=== PATIENT | male | born 1950 | race Caucasian/White ===

== ENCOUNTER 2017-11-19 16:18 | Inpatient (IN) | payer MEDICARE, MEDICAID ==
[~2017-11-19] VITALS: Ht 162.6 cm; Wt 65.8 kg
[2017-11-19 19:10] LABS: EOSINOPHILS % (AUTO) 0.9 % (1.0-6.0); HEMATOCRIT 45.2 % (41-53); HEMOGLOBIN 14.8 g/dL (13.5-17.5); LYMPHOCYTES # (AUTO) 1.6 K/uL (1.0-4.8); LYMPHOCYTES % (AUTO) 24.4 % (22.0-44.0); MEAN CORPUSCULAR HEMOGLOBIN 28.2 pg (26.0-34.0); MEAN CORPUSCULAR HGB CONC 32.7 G/dL (31.0-37.0); MEAN CORPUSCULAR VOLUME 86 fL (80-100); MONOCYTES # (AUTO) 0.5 K/uL (0.1-1.0); MONOCYTES % (AUTO) 7.9 % (2.0-9.0); NEUTROPHILS # (AUTO) 4.3 K/uL (1.8-7.7); NEUTROPHILS % (AUTO) 65.8 % (40.0-70.0); PLATELET COUNT (AUTO) 373 K/uL (150-450); RED BLOOD CELL COUNT(AUTO) 5.23 MIL/uL (4.50-5.90); RED CELL DISTRIBUTION WIDTH 14.6 % (11.5-14.5)
[2017-11-19 19:21] LABS: AMPHET/METH SCREEN,URINE NEGATIVE (NEGATIVE); BARBITURATE SCREEN, URINE NEGATIVE (NEGATIVE); BENZODIAZEPINES SCREEN,URINE NEGATIVE (NEGATIVE); CANNABINOID SCREEN,URINE NEGATIVE (NEGATIVE); COCAINE SCREEN,URINE NEGATIVE (NEGATIVE); METHADONE SCREEN, URINE NEGATIVE (NEGATIVE); OPIATE SCREEN,URINE NEGATIVE (NEGATIVE); PHENCYCLIDINE SCREEN,URINE NEGATIVE (NEGATIVE)
[2017-11-19 19:25] LABS: ANION GAP 9 mmol/L (8-16); CALCIUM, TOTAL 8.5 mg/dL (8.8-10.5); CARBON DIOXIDE 30 mmol/L (22-29); CHLORIDE 101 mmol/L (98-107); GLOMERULAR FILTR. RATE CALC > 60 mL/min (>60); GLUCOSE,RANDOM 94 mg/dL (70-110); POTASSIUM 4.9 mmol/L (3.5-5.1); SODIUM SERUM 140 mmol/L (136-145); UREA NITROGEN, BLOOD 18 mg/dL (7-18)
[2017-11-19 19:39] LABS: ALANINE AMINOTRANSFERASE 47 U/L (12-78); ALBUMIN 3.6 g/dL (3.4-5.0); ALKALINE PHOSPHATASE 93 U/L (46-116); ASPARTATE AMINOTRANSFERASE 37 U/L (15-37); BILIRUBIN,TOTAL 0.3 mg/dL (0.1-1.0); TOTAL PROTEIN, SERUM 8.2 g/dL (6.4-8.2)
[2017-11-19] MEDS ORDERED: LORazepam 2 MG TABLET PO PRN (21:15)
[2017-11-19] MEDS ORDERED: HALOPERIDOL 5 MG TABLET PO PRN (21:15)
[2017-11-20 02:12] VITALS: BP 122/64
[2017-11-20] MEDS ORDERED: PNEUMOCOCCAL VACCINE POLYVALENT 0.5 ML VIAL [PPSV23] IM ONE (02:30)
[2017-11-20 05:48] LABS: CHOL/HDL RATIO 3.1 (4.2-7.3); CHOLESTEROL 222 mg/dL (131-200); HDL CHOLESTEROL 71 mg/dL (40-60); LDL CHOL (CALC.) 136 mg/dL (0-130); TRIGLYCERIDES 73 mg/dL (15-150)
[2017-11-20] MEDS ORDERED: ACETAMINOPHEN 325 MG TABLET PO PRN (06:15)
[2017-11-20] MEDS: IBUPROFEN 600 MG TABLET PO PRN (06:31)
[2017-11-20 08:44] VITALS: BP 124/84
[2017-11-20] MEDS ORDERED: MAG HYDROX/AL HYDROX/SIMETH ES 30 ML SUSPENSION UDCUP PO PRN (09:45)
[2017-11-20] MEDS ORDERED: CloNIDine HCL 0.1 MG TABLET PO PRN (09:45)
[2017-11-20] MEDS ORDERED: PETROLATUM,WHITE 71 GM JELLY TP PRN (09:45)
[2017-11-20] MEDS ORDERED: BACITRACIN 28.4 GM OINTMENT TP PRN (09:45)
[2017-11-20] MEDS ORDERED: LOPERAMIDE HCL 2 MG CAPSULE PO PRN (09:45)
[2017-11-20] MEDS ORDERED: ALBUTEROL SULFATE HFA 90 MCG/PUFF 8 GM INHALER IH PRN (09:45)
[2017-11-20] MEDS ORDERED: MAGNESIUM HYDROXIDE SUSPENSION 30 ML UDCUP PO PRN (09:45)
[2017-11-20] MEDS ORDERED: ONDANSETRON HCL 4 MG TABLET PO PRN (09:45)
[2017-11-20] MEDS ORDERED: DICLOFENAC SODIUM 1% 100 GM GEL [2GM] TP PRN (09:45)
[2017-11-20] MEDS ORDERED: BENZOCAINE/MENTHOL LOZENGE MM PRN (09:45)
[2017-11-20 12:45] VITALS: BP 120/78
[2017-11-20] MEDS: TraMADol HCL 50 MG TABLET PO PRN (12:58)
[2017-11-20 14:00] VITALS: BP 128/68
[2017-11-20] MEDS: ESCITALOPRAM OXALATE 10 MG TABLET PO SCH (14:00)
[2017-11-20 16:58] VITALS: BP 105/68
[2017-11-21] MEDS: IBUPROFEN 600 MG TABLET PO PRN (03:56)
[2017-11-21 04:50] VITALS: BP 137/90
[2017-11-21] MEDS: ESCITALOPRAM OXALATE 10 MG TABLET PO SCH (08:14)
[2017-11-21 08:22] VITALS: BP 128/69
[2017-11-21] MEDS: TraMADol HCL 50 MG TABLET PO PRN (08:22)
[2017-11-21] MEDS ORDERED: ESCITALOPRAM OXALATE 10 MG TABLET PO SCH (09:00)
[2017-11-21 09:22] VITALS: BP 122/68
[2017-11-21 21:05] VITALS: BP 109/62
[2017-11-22] VITALS (7 sets, daily range): BP systolic 123–133; BP diastolic 71–93
[2017-11-22 06:29] LABS: GLUCOMETER DEV NAME(LOC) 3EI B; GLUCOSE,POINT OF CARE 88 MG/DL (70-110)
[2017-11-22] MEDS: ESCITALOPRAM OXALATE 10 MG TABLET PO SCH (08:34)
[2017-11-22] MEDS: TraMADol HCL 50 MG TABLET PO PRN ×2 (12:26→20:35)
[2017-11-22] MEDS: SIMVASTATIN 10 MG TABLET PO SCH (20:23)
[2017-11-22] MEDS: ZOLPIDEM TARTRATE 10 MG TABLET PO PRN (20:36)
[2017-11-23 03:21] VITALS: BP 124/76
[2017-11-23 09:18] LABS: BASOPHILS % (AUTO) 1.3 % (0.0-2.0); EOSINOPHILS % (AUTO) 2.2 % (1.0-6.0); HEMATOCRIT 42.5 % (41-53); HEMOGLOBIN 14.1 g/dL (13.5-17.5); LYMPHOCYTES # (AUTO) 1.5 K/uL (1.0-4.8); LYMPHOCYTES % (AUTO) 27.6 % (22.0-44.0); MEAN CORPUSCULAR HEMOGLOBIN 28.4 pg (26.0-34.0); MEAN CORPUSCULAR HGB CONC 33.1 G/dL (31.0-37.0); MEAN CORPUSCULAR VOLUME 86 fL (80-100); MONOCYTES # (AUTO) 0.6 K/uL (0.1-1.0); MONOCYTES % (AUTO) 10.8 % (2.0-9.0); NEUTROPHILS # (AUTO) 3.1 K/uL (1.8-7.7); NEUTROPHILS % (AUTO) 58.1 % (40.0-70.0); PLATELET COUNT (AUTO) 346 K/uL (150-450); RED BLOOD CELL COUNT(AUTO) 4.97 MIL/uL (4.50-5.90); RED CELL DISTRIBUTION WIDTH 14.8 % (11.5-14.5)
[2017-11-23] MEDS: CHOLECALCIFEROL (VIT D3) 1,000 UNITS TABLET PO SCH (10:06)
[2017-11-23] MEDS: ESCITALOPRAM OXALATE 10 MG TABLET PO SCH (10:06)
[2017-11-23 10:43] VITALS: BP 148/83
[2017-11-23 20:10] VITALS: BP 136/68
[2017-11-23] MEDS: SIMVASTATIN 10 MG TABLET PO SCH (20:33)
[2017-11-23] MEDS: ZOLPIDEM TARTRATE 10 MG TABLET PO PRN (20:33)
[2017-11-23 21:59] VITALS: BP 137/81
[2017-11-23] MEDS: TraMADol HCL 50 MG TABLET PO PRN (22:01)
[2017-11-24 06:38] VITALS: BP 141/86
[2017-11-24] MEDS: CHOLECALCIFEROL (VIT D3) 1,000 UNITS TABLET PO SCH (08:36)
[2017-11-24] MEDS: ESCITALOPRAM OXALATE 10 MG TABLET PO SCH (08:36)
[2017-11-24 10:14] VITALS: BP 120/75
[2017-11-24] MEDS ORDERED: ESCI10TA PO (10:34)
[2017-11-24] MEDS ORDERED: SIMV-259 PO (10:35)
[2017-11-24] MEDS ORDERED: VITAD1000 PO (10:35)
[2017-11-24 10:49] VITALS: BP 124/68
[2017-11-24] MEDS: TraMADol HCL 50 MG TABLET PO PRN (10:49)
[2017-11-24 17:00] VITALS: BP 160/98
[2017-11-24] MEDS: SIMVASTATIN 10 MG TABLET PO SCH (21:02)
[2017-11-25 00:10] VITALS: BP 142/101
[2017-11-25] MEDS: TraMADol HCL 50 MG TABLET PO PRN (00:13)
[2017-11-25] MEDS: ESCITALOPRAM OXALATE 10 MG TABLET PO SCH (08:51)
[2017-11-25] MEDS: CHOLECALCIFEROL (VIT D3) 1,000 UNITS TABLET PO SCH (08:51)
[2017-11-25 09:24] VITALS: BP 126/80
[2017-11-25 18:09] VITALS: BP 140/95
[2017-11-25] MEDS: SIMVASTATIN 10 MG TABLET PO SCH (20:10)
[2017-11-26] MEDS: ESCITALOPRAM OXALATE 10 MG TABLET PO SCH (09:00)
[2017-11-26] MEDS: CHOLECALCIFEROL (VIT D3) 1,000 UNITS TABLET PO SCH (09:00)
[2017-11-26] MEDS ORDERED: SULFAMETHOX/TRIMETH DS 800-160 MG/TABLET PO SCH (09:00)
== END 2017-11-26 09:15 | disposition home or self-care (01) | DRG 885 ==
LOC: EMS 16:21 → B2X 22:00 → 3EX 11-20 10:17
PROC: 3E0234Z Introduction of Serum, Toxoid and Vaccine into Muscle, Percutaneous Approach (ICD-10-PCS; principal; 2017-11-20)
DX: F33.2 Major depressive disorder, recurrent severe without psychotic features (principal); J44.9 Chronic obstructive pulmonary disease, unspecified; R45.851 Suicidal ideations; L97.919 Non-pressure chronic ulcer of unspecified part of right lower leg with unspecified severity; L97.929 Non-pressure chronic ulcer of unspecified part of left lower leg with unspecified severity; M48.56XA Collapsed vertebra, not elsewhere classified, lumbar region, initial encounter for fracture; B18.2 Chronic viral hepatitis C; F41.9 Anxiety disorder, unspecified; G47.00 Insomnia, unspecified; G89.29 Other chronic pain; M19.90 Unspecified osteoarthritis, unspecified site; M43.17 Spondylolisthesis, lumbosacral region; M85.80 Other specified disorders of bone density and structure, unspecified site; M54.9 Dorsalgia, unspecified; M25.569 Pain in unspecified knee; Z23 Encounter for immunization; Z79.899 Other long term (current) drug therapy; Z59.0 Homelessness
CPT/HCPCS: 72100; 82306; 82962; 84443; 87070; 87147; 87205; 90471; 93925; 93970; 99285; G0480

== ENCOUNTER 2018-07-11 11:22 | Inpatient (IN) | payer MEDICARE, MEDICAID ==
[~2018-07-11] VITALS: Ht 170.2 cm; Wt 68.2 kg
[~2018-07-11 11:22] MED LIST: ESCI10TA PO; SIMV-259 PO; VITAD1000 PO
[2018-07-11 12:05] LABS: BASOPHILS % (AUTO) 0.8 % (0.0-2.0); EOSINOPHILS % (AUTO) 1.1 % (1.0-6.0); HEMATOCRIT 45.8 % (41-53); HEMOGLOBIN 15.1 g/dL (13.5-17.5); LYMPHOCYTES # (AUTO) 1.1 K/uL (1.0-4.8); LYMPHOCYTES % (AUTO) 22.2 % (22.0-44.0); MEAN CORPUSCULAR HEMOGLOBIN 28.4 pg (26.0-34.0); MEAN CORPUSCULAR VOLUME 86 fL (80-100); MONOCYTES # (AUTO) 0.4 K/uL (0.1-1.0); MONOCYTES % (AUTO) 8.5 % (2.0-9.0); NEUTROPHILS # (AUTO) 3.5 K/uL (1.8-7.7); NEUTROPHILS % (AUTO) 67.4 % (40.0-70.0); PLATELET COUNT (AUTO) 403 K/uL (150-450); RED BLOOD CELL COUNT(AUTO) 5.32 MIL/uL (4.50-5.90); RED CELL DISTRIBUTION WIDTH 15.9 % (11.5-14.5)
[2018-07-11 12:13] LABS: ANION GAP 8 mmol/L (8-16); CALCIUM, TOTAL 9.5 mg/dL (8.8-10.5); CARBON DIOXIDE 28 mmol/L (22-29); CHLORIDE 104 mmol/L (98-107); CREATININE 0.78 mg/dL (0.60-1.30); GLOMERULAR FILTR. RATE CALC > 60 mL/min (>60); GLUCOSE,RANDOM 100 mg/dL (70-110); POTASSIUM 4.4 mmol/L (3.5-5.1); SODIUM SERUM 140 mmol/L (136-145); UREA NITROGEN, BLOOD 14 mg/dL (7-18)
[2018-07-11 12:28] LABS: ALANINE AMINOTRANSFERASE 53 U/L (12-78); ALBUMIN 3.7 g/dL (3.4-5.0); ALKALINE PHOSPHATASE 97 U/L (46-116); ASPARTATE AMINOTRANSFERASE 46 U/L (15-37); BILIRUBIN,TOTAL 0.4 mg/dL (0.1-1.0); TOTAL PROTEIN, SERUM 8.4 g/dL (6.4-8.2)
[2018-07-11] MEDS ORDERED: LOPERAMIDE HCL 2 MG CAPSULE PO PRN (13:15)
[2018-07-11] MEDS ORDERED: QUEtiapine FUMARATE 100 MG TABLET PO PRN (13:15)
[2018-07-11] MEDS ORDERED: TUBERCULIN, PURIFIED PROTEIN DERIVATIVE 5 TU/0.1 ML SYG ID ONE (13:15)
[2018-07-11] MEDS ORDERED: PROMETHAZINE HCL 25 MG TABLET PO PRN (13:15)
[2018-07-11] MEDS ORDERED: LORazepam 2 MG TABLET PO PRN (13:15)
[2018-07-11] MEDS ORDERED: MAG HYDROX/AL HYDROX/SIMETH ES 30 ML SUSPENSION UDCUP PO PRN (13:15)
[2018-07-11] MEDS ORDERED: ACETAMINOPHEN 325 MG TABLET PO PRN (13:15)
[2018-07-11] MEDS ORDERED: HydrOXYzine PAMOATE 50 MG CAPSULE PO PRN (13:15)
[2018-07-11] MEDS ORDERED: GuaiFENesin/D-METHORPHAN [SUGAR-FREE] 200-20MG/10 ML SYRUP UDCUP PO PRN (13:15)
[2018-07-11 18:17] LABS: AMPHET/METH SCREEN,URINE POSITIVE (NEGATIVE); BARBITURATE SCREEN, URINE NEGATIVE (NEGATIVE); BENZODIAZEPINES SCREEN,URINE NEGATIVE (NEGATIVE); CANNABINOID SCREEN,URINE POSITIVE (NEGATIVE); COCAINE SCREEN,URINE NEGATIVE (NEGATIVE); METHADONE SCREEN, URINE NEGATIVE (NEGATIVE); OPIATE SCREEN,URINE NEGATIVE (NEGATIVE)
[2018-07-11 18:19] LABS: PHENCYCLIDINE SCREEN,URINE NEGATIVE (NEGATIVE)
[2018-07-11] MEDS ORDERED: CloNIDine HCL 0.1 MG TABLET PO PRN (18:30)
[2018-07-11] MEDS ORDERED: PETROLATUM,WHITE 71 GM JELLY TP PRN (18:30)
[2018-07-11] MEDS ORDERED: ALBUTEROL SULFATE HFA 90 MCG/PUFF 8 GM INHALER IH PRN (18:30)
[2018-07-11] MEDS ORDERED: BENZOCAINE/MENTHOL LOZENGE MM PRN (18:30)
[2018-07-11] MEDS ORDERED: ONDANSETRON HCL 4 MG TABLET PO PRN (18:30)
[2018-07-11] MEDS ORDERED: IBUPROFEN 600 MG TABLET PO PRN (18:30)
[2018-07-11] MEDS ORDERED: BACITRACIN 28.4 GM OINTMENT TP PRN (18:30)
[2018-07-11] MEDS: GABAPENTIN 100 MG CAPSULE PO SCH (18:45)
[2018-07-11] MEDS: THIAMINE HCL 100 MG TABLET PO SCH (18:45)
[2018-07-11 20:08] VITALS: BP 130/78
[2018-07-11] MEDS: SIMVASTATIN 10 MG TABLET PO SCH (21:58)
[2018-07-12 03:36] VITALS: BP 149/100
[2018-07-12 06:35] LABS: BASOPHILS % (AUTO) 1.9 % (0.0-2.0); HEMATOCRIT 45.6 % (41-53); HEMOGLOBIN 14.9 g/dL (13.5-17.5); LYMPHOCYTES # (AUTO) 1.5 K/uL (1.0-4.8); LYMPHOCYTES % (AUTO) 32.3 % (22.0-44.0); MEAN CORPUSCULAR HEMOGLOBIN 28.7 pg (26.0-34.0); MEAN CORPUSCULAR HGB CONC 32.7 G/dL (31.0-37.0); MEAN CORPUSCULAR VOLUME 88 fL (80-100); MONOCYTES # (AUTO) 0.4 K/uL (0.1-1.0); MONOCYTES % (AUTO) 9.1 % (2.0-9.0); NEUTROPHILS # (AUTO) 2.5 K/uL (1.8-7.7); NEUTROPHILS % (AUTO) 54.7 % (40.0-70.0); PLATELET COUNT (AUTO) 382 K/uL (150-450); RED CELL DISTRIBUTION WIDTH 15.8 % (11.5-14.5)
[2018-07-12 06:58] LABS: ALANINE AMINOTRANSFERASE 46 U/L (12-78); ALBUMIN 3.3 g/dL (3.4-5.0); ALKALINE PHOSPHATASE 87 U/L (46-116); ANION GAP 9 mmol/L (8-16); ASPARTATE AMINOTRANSFERASE 40 U/L (15-37); BILIRUBIN,TOTAL 0.5 mg/dL (0.1-1.0); CARBON DIOXIDE 26 mmol/L (22-29); CHLORIDE 104 mmol/L (98-107); CHOL/HDL RATIO 2.8 (4.2-7.3); CHOLESTEROL 205 mg/dL (131-200); CREATININE 0.69 mg/dL (0.60-1.30); GLOMERULAR FILTR. RATE CALC > 60 mL/min (>60); GLUCOSE,RANDOM 78 mg/dL (70-110); HDL CHOLESTEROL 74 mg/dL (40-60); LDL CHOL (CALC.) 115 mg/dL (0-130); POTASSIUM 3.7 mmol/L (3.5-5.1); SODIUM SERUM 139 mmol/L (136-145); TOTAL PROTEIN, SERUM 7.6 g/dL (6.4-8.2); TRIGLYCERIDES 81 mg/dL (15-150); UREA NITROGEN, BLOOD 16 mg/dL (7-18)
[2018-07-12] MEDS: THIAMINE HCL 100 MG TABLET PO SCH ×2 (09:00→16:26)
[2018-07-12] MEDS: DULoxetine HCL 20 MG CAPSULE PO SCH (09:00)
[2018-07-12] MEDS: NALTREXONE HCL 50 MG TABLET PO SCH (09:00)
[2018-07-12] MEDS: CHOLECALCIFEROL (VIT D3) 1,000 UNITS TABLET PO SCH (09:00)
[2018-07-12] MEDS: FOLIC ACID 1 MG TABLET PO SCH (09:00)
[2018-07-12] MEDS: GABAPENTIN 100 MG CAPSULE PO SCH ×3 (09:00→16:26)
[2018-07-12] MEDS: MULTIVITAMINS WITH MINERALS, THERAPEUTIC TABLET PO SCH (09:00)
[2018-07-12 13:33] VITALS: BP 135/85
[2018-07-12 17:22] VITALS: BP 120/75
[2018-07-12] MEDS: SIMVASTATIN 10 MG TABLET PO SCH (21:40)
[2018-07-13] MEDS: DULoxetine HCL 20 MG CAPSULE PO SCH (08:24)
[2018-07-13] MEDS: GABAPENTIN 100 MG CAPSULE PO SCH ×3 (08:24→16:44)
[2018-07-13] MEDS: NALTREXONE HCL 50 MG TABLET PO SCH (08:24)
[2018-07-13] MEDS: CHOLECALCIFEROL (VIT D3) 1,000 UNITS TABLET PO SCH (08:24)
[2018-07-13] MEDS: FOLIC ACID 1 MG TABLET PO SCH (08:24)
[2018-07-13] MEDS: THIAMINE HCL 100 MG TABLET PO SCH ×2 (08:24→16:45)
[2018-07-13] MEDS: MULTIVITAMINS WITH MINERALS, THERAPEUTIC TABLET PO SCH (08:25)
[2018-07-13 10:22] VITALS: BP 149/98
[2018-07-13 17:54] VITALS: BP 139/102
[2018-07-13] MEDS: ZOLPIDEM TARTRATE 10 MG TABLET PO PRN (20:38)
[2018-07-13] MEDS: SIMVASTATIN 10 MG TABLET PO SCH (20:38)
[2018-07-14 08:12] VITALS: BP 145/85
[2018-07-14] MEDS: CHOLECALCIFEROL (VIT D3) 1,000 UNITS TABLET PO SCH (09:23)
[2018-07-14] MEDS: FOLIC ACID 1 MG TABLET PO SCH (09:23)
[2018-07-14] MEDS: DULoxetine HCL 20 MG CAPSULE PO SCH (09:23)
[2018-07-14] MEDS: GABAPENTIN 100 MG CAPSULE PO SCH ×3 (09:23→17:00)
[2018-07-14] MEDS: THIAMINE HCL 100 MG TABLET PO SCH ×2 (09:23→17:00)
[2018-07-14] MEDS: NALTREXONE HCL 50 MG TABLET PO SCH (09:23)
[2018-07-14] MEDS: MULTIVITAMINS WITH MINERALS, THERAPEUTIC TABLET PO SCH (09:23)
[2018-07-14 16:40] VITALS: BP 134/79
[2018-07-14] MEDS: SIMVASTATIN 10 MG TABLET PO SCH (21:00)
[2018-07-15] MEDS: DULoxetine HCL 30 MG CAPSULE PO SCH (08:15)
[2018-07-15] MEDS: GABAPENTIN 100 MG CAPSULE PO SCH ×3 (08:15→17:03)
[2018-07-15] MEDS: THIAMINE HCL 100 MG TABLET PO SCH ×2 (08:15→17:03)
[2018-07-15] MEDS: NALTREXONE HCL 50 MG TABLET PO SCH (08:15)
[2018-07-15] MEDS: FOLIC ACID 1 MG TABLET PO SCH (08:15)
[2018-07-15] MEDS: CHOLECALCIFEROL (VIT D3) 1,000 UNITS TABLET PO SCH (08:15)
[2018-07-15] MEDS: MULTIVITAMINS WITH MINERALS, THERAPEUTIC TABLET PO SCH (08:15)
[2018-07-15 15:05] VITALS: BP 146/86
[2018-07-15] MEDS: SIMVASTATIN 10 MG TABLET PO SCH (20:29)
[2018-07-16] MEDS: MAGNESIUM HYDROXIDE SUSPENSION 30 ML UDCUP PO PRN (04:11)
[2018-07-16] MEDS: NALTREXONE HCL 50 MG TABLET PO SCH (08:53)
[2018-07-16] MEDS: FOLIC ACID 1 MG TABLET PO SCH (08:53)
[2018-07-16] MEDS: GABAPENTIN 100 MG CAPSULE PO SCH ×3 (08:53→16:47)
[2018-07-16] MEDS: DULoxetine HCL 30 MG CAPSULE PO SCH (08:53)
[2018-07-16] MEDS: CHOLECALCIFEROL (VIT D3) 1,000 UNITS TABLET PO SCH (08:53)
[2018-07-16] MEDS: MULTIVITAMINS WITH MINERALS, THERAPEUTIC TABLET PO SCH (08:53)
[2018-07-16] MEDS: THIAMINE HCL 100 MG TABLET PO SCH ×2 (08:53→16:47)
[2018-07-16 09:50] VITALS: BP 141/87
[2018-07-16] MEDS: ZOLPIDEM TARTRATE 10 MG TABLET PO PRN (20:22)
[2018-07-16] MEDS: SIMVASTATIN 10 MG TABLET PO SCH (21:16)
[2018-07-16] MEDS: QUEtiapine FUMARATE 100 MG TABLET PO SCH (21:17)
[2018-07-16 22:45] VITALS: BP 142/88
[2018-07-17] MEDS: GABAPENTIN 100 MG CAPSULE PO SCH ×3 (10:07→17:02)
[2018-07-17] MEDS: MULTIVITAMINS WITH MINERALS, THERAPEUTIC TABLET PO SCH (10:07)
[2018-07-17] MEDS: DULoxetine HCL 30 MG CAPSULE PO SCH (10:07)
[2018-07-17] MEDS: NALTREXONE HCL 50 MG TABLET PO SCH (10:07)
[2018-07-17] MEDS: CHOLECALCIFEROL (VIT D3) 1,000 UNITS TABLET PO SCH (10:07)
[2018-07-17] MEDS: THIAMINE HCL 100 MG TABLET PO SCH ×2 (10:08→17:02)
[2018-07-17] MEDS: FOLIC ACID 1 MG TABLET PO SCH (10:08)
[2018-07-17 10:38] VITALS: BP 142/63
[2018-07-17 17:18] VITALS: BP 138/77
[2018-07-17] MEDS: QUEtiapine FUMARATE 100 MG TABLET PO SCH (20:30)
[2018-07-17] MEDS: SIMVASTATIN 10 MG TABLET PO SCH (20:30)
[2018-07-17] MEDS: ZOLPIDEM TARTRATE 10 MG TABLET PO PRN (21:12)
[2018-07-18] MEDS: MAGNESIUM HYDROXIDE SUSPENSION 30 ML UDCUP PO PRN (08:51)
[2018-07-18] MEDS: DULoxetine HCL 30 MG CAPSULE PO SCH (08:51)
[2018-07-18] MEDS: THIAMINE HCL 100 MG TABLET PO SCH ×2 (08:51→17:11)
[2018-07-18] MEDS: GABAPENTIN 100 MG CAPSULE PO SCH ×3 (08:51→17:11)
[2018-07-18] MEDS: MULTIVITAMINS WITH MINERALS, THERAPEUTIC TABLET PO SCH (08:51)
[2018-07-18] MEDS: NALTREXONE HCL 50 MG TABLET PO SCH (08:51)
[2018-07-18] MEDS: CHOLECALCIFEROL (VIT D3) 1,000 UNITS TABLET PO SCH (08:51)
[2018-07-18] MEDS: FOLIC ACID 1 MG TABLET PO SCH (08:51)
[2018-07-18 10:40] VITALS: BP 141/84
[2018-07-18] MEDS: LISINOPRIL 10 MG TABLET PO SCH (10:47)
[2018-07-18 17:18] VITALS: BP 138/77
[2018-07-18] MEDS: QUEtiapine FUMARATE 100 MG TABLET PO SCH (21:10)
[2018-07-18] MEDS: SIMVASTATIN 10 MG TABLET PO SCH (21:10)
[2018-07-19] MEDS ORDERED: DULoxetine HCL 60 MG CAPSULE PO SCH (09:00)
[2018-07-19] MEDS: LISINOPRIL 10 MG TABLET PO SCH (09:27)
[2018-07-19] MEDS: NALTREXONE HCL 50 MG TABLET PO SCH (09:28)
[2018-07-19] MEDS: FOLIC ACID 1 MG TABLET PO SCH (09:28)
[2018-07-19] MEDS: THIAMINE HCL 100 MG TABLET PO SCH (09:28)
[2018-07-19] MEDS: GABAPENTIN 100 MG CAPSULE PO SCH ×2 (09:28→12:42)
[2018-07-19] MEDS: CHOLECALCIFEROL (VIT D3) 1,000 UNITS TABLET PO SCH (09:28)
[2018-07-19] MEDS: MULTIVITAMINS WITH MINERALS, THERAPEUTIC TABLET PO SCH (09:29)
[2018-07-19 10:17] VITALS: BP 118/74
[2018-07-19] MEDS ORDERED: DULO60CA44 PO (10:58)
[2018-07-19] MEDS ORDERED: GABA-529 PO (10:58)
[2018-07-19] MEDS ORDERED: NALT50TA6 PO (10:59)
[2018-07-19] MEDS ORDERED: QUET100T PO (10:59)
[2018-07-19] MEDS ORDERED: LISI-661 PO (11:03)
== END 2018-07-19 14:45 | disposition home or self-care (01) | DRG 751 ==
LOC: EMS 11:23 → 3EI 17:16
PROVIDERS: ADMIT Psychiatry & Neurology Psychiatry; ATTEND Psychiatry & Neurology Psychiatry
DX: F33.2 Major depressive disorder, recurrent severe without psychotic features (principal); R45.851 Suicidal ideations; J44.9 Chronic obstructive pulmonary disease, unspecified; Z91.14 Patient's other noncompliance with medication regimen; B18.2 Chronic viral hepatitis C; F12.90 Cannabis use, unspecified, uncomplicated; F15.90 Other stimulant use, unspecified, uncomplicated; F41.9 Anxiety disorder, unspecified; G47.00 Insomnia, unspecified; G89.29 Other chronic pain; M19.90 Unspecified osteoarthritis, unspecified site; Z59.0 Homelessness; Z79.899 Other long term (current) drug therapy
CPT/HCPCS: 83036; 86592; 93005; 99285; G0480

== ENCOUNTER 2021-06-03 13:29 | Emergency (ER) | payer MEDICARE, OTHER ==
[~2021-06-03] VITALS: Ht 165.1 cm; Wt 59.1 kg
[~2021-06-03 13:29] MED LIST changes: +CHOL100018 PO; +DULO60CA98 PO; -ESCI10TA PO; +GABA-1216 PO; +LISI-893 PO; +NALT50TA6 PO; +QUET100T PO; -VITAD1000 PO
[2021-06-03 16:52] LABS: BASOPHILS % (AUTO) 0.9 % (0.0-2.0); EOSINOPHILS % (AUTO) 2.6 % (1.0-6.0); HEMATOCRIT 44.3 % (41-53); HEMOGLOBIN 13.9 g/dL (13.5-17.5); LYMPHOCYTES # (AUTO) 1.4 K/uL (1.0-4.8); LYMPHOCYTES % (AUTO) 22.9 % (22.0-44.0); MEAN CORPUSCULAR HEMOGLOBIN 24.9 pg (26.0-34.0); MEAN CORPUSCULAR HGB CONC 31.3 G/dL (31.0-37.0); MEAN CORPUSCULAR VOLUME 80 fL (80-100); MONOCYTES # (AUTO) 0.5 K/uL (0.1-1.0); MONOCYTES % (AUTO) 7.4 % (2.0-9.0); NEUTROPHILS # (AUTO) 4.1 K/uL (1.8-7.7); NEUTROPHILS % (AUTO) 66.2 % (40.0-70.0); PLATELET COUNT (AUTO) 440 K/uL (150-450); RED BLOOD CELL COUNT(AUTO) 5.55 MIL/uL (4.50-5.90); RED CELL DISTRIBUTION WIDTH 16.4 % (11.5-14.5)
[2021-06-03 17:01] LABS: ANION GAP 11 mmol/L (8-16); CALCIUM, TOTAL 8.8 mg/dL (8.8-10.5); CARBON DIOXIDE 24 mmol/L (22-29); CHLORIDE 102 mmol/L (98-107); CREATININE 0.83 mg/dL (0.60-1.30); GLOMERULAR FILTR. RATE CALC > 60 mL/min (>60); GLUCOSE,RANDOM 100 mg/dL (70-110); POTASSIUM 4.5 mmol/L (3.5-5.1); SODIUM SERUM 137 mmol/L (136-145); UREA NITROGEN, BLOOD 25 mg/dL (7-18)
[2021-06-03 17:07] LABS: ALANINE AMINOTRANSFERASE 32 U/L (12-78); ALBUMIN 3.3 g/dL (3.4-5.0); ALKALINE PHOSPHATASE 94 U/L (46-116); ASPARTATE AMINOTRANSFERASE 25 U/L (15-37); BILIRUBIN,TOTAL 0.3 mg/dL (0.1-1.0); TOTAL PROTEIN, SERUM 8.4 g/dL (6.4-8.2)
[2021-06-03 17:11] LABS: COVID AG,FIA SOURCE NASOPHARYNGEAL
[2021-06-03 17:32] LABS: AMPHET/METH SCREEN,URINE NEGATIVE (NEGATIVE); BARBITURATE SCREEN, URINE NEGATIVE (NEGATIVE); BENZODIAZEPINES SCREEN,URINE NEGATIVE (NEGATIVE); CANNABINOID SCREEN,URINE NEGATIVE (NEGATIVE); COCAINE SCREEN,URINE NEGATIVE (NEGATIVE); METHADONE SCREEN, URINE NEGATIVE (NEGATIVE); OPIATE SCREEN,URINE NEGATIVE (NEGATIVE); PHENCYCLIDINE SCREEN,URINE NEGATIVE (NEGATIVE)
[2021-06-03 17:50] VITALS: BP 126/76
[2021-06-03] MEDS ORDERED: PERMETHRIN 5% 60 GM CREAM TP ONE (18:45)
== END 2021-06-03 22:53 | disposition home or self-care (01) ==
LOC: EMS 13:36
DX: F32.9 Major depressive disorder, single episode, unspecified (principal); Z20.822 Contact with and (suspected) exposure to COVID-19
CPT/HCPCS: 36415; 80053; 80307; 85025; 87426; 99285; G0480

== ENCOUNTER 2021-06-04 01:08 | Emergency (ER) | payer MEDICARE, OTHER ==
[~2021-06-04] VITALS: Ht 167.6 cm; Wt 72.7 kg
[2021-06-04] MEDS ORDERED: IBUPROFEN 800 MG TABLET PO ONE (02:00)
[2021-06-04 03:40] VITALS: BP 127/89
== END 2021-06-04 06:19 | disposition home or self-care (01) ==
LOC: EMS 01:10
DX: S42.292D Other displaced fracture of upper end of left humerus, subsequent encounter for fracture with routine healing (principal); X58.XXXD Exposure to other specified factors, subsequent encounter
CPT/HCPCS: 99283